=== PATIENT | male | born 1955 | race Caucasian/White ===

== ENCOUNTER → 2019-05-24 | Outpatient (REF) | payer OTHER, BC ==
[2019-05-24 17:07] LABS: CREATININE FOR GFR 1.35 MG/DL (0.70-1.30)
== END ==
LOC: M LABDRAW1 14:52
PROVIDERS: ATTEND Physical Medicine & Rehabilitation
DX: Z01.812 Encounter for preprocedural laboratory examination (principal)

== ENCOUNTER → 2021-07-28 | Outpatient (CLI) | payer BC, OTHER ==
[~2021-07-28] MED LIST: DULO20CA27 PO; ECOT81TA5 PO; EZET10TA21 PO; HYDR-4465 PO; LOSA100T45 PO; METF-838 PO; METO1TAB33 PO; ROSU40TA4 PO; VITA200048 PO; VITMTA PO
== END ==
LOC: M LABSMTC 09:41
PROVIDERS: ATTEND Anesthesiology
DX: Z11.52 Encounter for screening for COVID-19 (principal)

== ENCOUNTER 2021-08-02 10:25 | Day surgery (SDC) | payer BC, OTHER ==
[~2021-08-02] VITALS: Ht 195.6 cm; Wt 125.6 kg
[~2021-08-02 10:25] MED LIST changes: +NS 1,000 ML IV ONE
[2021-08-02] MEDS ORDERED: propofoL 200 MG/20 ML VIAL As Ordered ONE ×2 (12:34→12:51)
[2021-08-02] MEDS ORDERED: LIDOCAINE 2% 100MG/5ML SDV (FOR ANES.) As Ordered ONE (12:34)
[2021-08-02] MEDS ORDERED: METOPROLOL 5 MG/5 ML VIAL As Ordered ONE (12:46)
[2021-08-02 13:33] VITALS: BP 123/55
== END 2021-08-02 13:35 | disposition home or self-care (01) ==
LOC: M OPP 10:25
PROVIDERS: ATTEND Internal Medicine Gastroenterology
DX: Z12.11 Encounter for screening for malignant neoplasm of colon (principal); Z86.010 Personal history of colon polyps; Z80.0 Family history of malignant neoplasm of digestive organs; K57.30 Diverticulosis of large intestine without perforation or abscess without bleeding; K64.0 First degree hemorrhoids; Z79.82 Long term (current) use of aspirin; Z79.899 Other long term (current) drug therapy; Z88.8 Allergy status to other drugs, medicaments and biological substances

== ENCOUNTER → 2023-12-11 | Outpatient (CLI) | payer BC ==
[~2023-12-11] MED LIST changes: -LOSA100T45 PO; +LOSA100T46 PO; -NS 1,000 ML IV ONE; -ROSU40TA4 PO; +ROSU40TA63 PO
== END ==
LOC: M PLAIMG 10:12
PROVIDERS: ATTEND Emergency Medicine
DX: M79.2 Neuralgia and neuritis, unspecified (principal); M50.30 Other cervical disc degeneration, unspecified cervical region